=== PATIENT | female | born 1965 | race African-American/Black ===

== ENCOUNTER → 2025-04-20 08:16 | Outpatient (REF) | payer OTHER, SELFPAY | LOC: WDC 08:16 | PROVIDERS: ATTENDING PHYSICIAN Family Medicine | DX: Z12.31 Encounter for screening mammogram for malignant neoplasm of breast (principal) | CPT/HCPCS: 77063; 77067 ==

== ENCOUNTER → 2025-06-15 10:06 | Outpatient (REF) | payer OTHER, SELFPAY | LOC: RAD 10:06 | PROVIDERS: ATTENDING PHYSICIAN Obstetrics & Gynecology; FAMILY PHYSICIAN Family Medicine | DX: D25.9 Leiomyoma of uterus, unspecified (principal) | CPT/HCPCS: 76830; 76856 ==

== ENCOUNTER → 2025-10-04 07:26 | Outpatient (REF) | payer OTHER, SELFPAY | LOC: PAVMRI 07:26 | PROVIDERS: ATTENDING PHYSICIAN Obstetrics & Gynecology; FAMILY PHYSICIAN Family Medicine | DX: D21.9 Benign neoplasm of connective and other soft tissue, unspecified (principal) | CPT/HCPCS: 72197; A9575 ==